=== PATIENT | female | born 1955 | race Caucasian/White ===

== ENCOUNTER → 2016-04-22 | Outpatient (CLI) | payer BC ==
--- NOTE | 2016-04-22 08:44 | MA ---
Screening Digital Mammogram With iCAD Analysis Clinical Indications: Routine screening. Technique: Standard cephalocaudal projections are obtained. Digital breast tomosynthesis was performe d in the MLO projection with reconstruction at 1.0 mm slice thickness and composite MLO views reconst ructed. This examination is processed by the iCAD computer aided detection system. Comparison: April 2015, October 2013, February 2012, January 2011, September 2009, September 2008, August 2007 . Breast density: Type B; Scattered fibroglandular densities. Findings: CAD was reviewed. No masses, suspicious calcifications or secondary signs of malignancy are seen. There has been no significant change in the appearance of either breast. Impression: Negative mammogram. BI-RADS 1. Recommendation: Routine mammographic screening in one year as long as physical examination is negativ [facility]. Negative mammography should not preclude additional workup of a clinically suspicious finding. The patient's information is entered into a reminder system with a target due date for her next mammo gram.
== END ==
LOC: FIMAGING 07:26
DX: Z12.31 Encounter for screening mammogram for malignant neoplasm of breast (principal)
CPT/HCPCS: G0202

== ENCOUNTER 2016-05-09 12:25 | Emergency (ER) | payer BC ==
--- NOTE | 2016-05-09 12:47 | EDPHY ---
H & P Smoking Status: Never smoked Time Seen by Provider: 05/09/16 12:39 HPI/ROS: Chief complaint. Vomiting, dizzy HPI. 60-year-old female riding in the car with her this morning about 2 -3 hours ago. She felt like she was going to pass out. notes that her arms became stiff and extended out and she was not responsive for about 60 seconds with her arms held out stiff. She came to. The says there was no shaking or seizure-type activity and then she has vomited multiple times since. She did have a similar episode about 1 year ago but did not pass out and did not have vomiting afterwards but did have near syncope. At this point she has no chest discomfort, shortness of breath, abdominal pain, headache, visual symptoms. She still somewhat nauseated. She has had multiple sclerosis for 21 years though has been stable. She has not been sick recently including fever cough upper respiratory symptoms ROS Constitutional. no fever/chills, no weakness Eyes. no problems with vision ENT. no sore throat, no nasal drainage Cardiovascular. no chest pain Respiratory. no shortness of breath, no cough Abdominal. no abdominal pain, no nausea/vomiting, no diarrhea . no problems urinating MS. no calf pain/swelling, no neck/back pain, no joint pain Skin. no rash Lymph. no swollen glands Neuro. Arms held out stiffness and then 60 second episode of unresponsiveness ( Andrew Ahuja) Past Medical/Surgical History: Multiple sclerosis, hypertension (Andrew Ahuja) Social History: , nonsmoker, no alcohol (Andrew Ahuja) Physical Exam: General Appearance: Alert pleasant well-developed female mild distress vital signs are stable Eyes: Pupils equal and round no pallor or injection. ENT, Mouth: Mucous membranes are moist. Respiratory: There are no retractions, lungs are clear to auscultation. Cardiovascular: Regular rate and rhythm. Gastrointestinal: Abdomen is soft and nontender, no masses, bowel sounds normal. Neurological: Awake and alert, sensory and motor exams grossly normal. Speech is normal. Cranial nerves are normal. There is no pronator drift. Finger-to- nose and [id number] are intact bilaterally Skin: Warm and dry, no rashes. Musculoskeletal: Neck is supple nontender. Extremities symmetrical, full range of motion. Psychiatric: Patient is oriented X 3, there is no agitation. (Andrew Ahuja) Constitutional: Initial Vital Signs Temperature (C) 36.3 C 05/09/16 12:29 Heart Rate 69 05/09/16 12:29 Respiratory Rate 16 05/09/16 12:29 Blood Pressure 168/73 H 05/09/16 12:29 O2 Sat (%) 100 05/09/16 12:29 O2 Delivery Mode Room Air O2 (L/minute) 2 Allergies/Adverse Reactions: No Known Allergies Allergy (Unverified 05/09/16 12:29) Home Medications: Medication Instructions Recorded Lisinopril 05/09/16 Medical Decision Making - Diagnostics EKG Interpretation: EKG interpreted by me shows normal sinus rhythm with normal interval and axis. QRS is normal there is no significant ST elevation or depression. There is some T-wave flattening in anterior leads V2 and V3. Rate is 58 (Andrew Ahuja) Procedures: IV normal saline, monitor (Andrew Ahuja) ED Course/Re-evaluation: I discussed the patient's case with Dr. Caruso who recommends MRI without and with contrast. If there is a new plaque her lesion consistent with MS the anti give her Solu-Medrol in the emergency department. If no new plaques then follow up in the next few days in their office. (Andrew Ahuja) Other Provider: I assumed care of this patient from Dr. Ahuja. She was undergoing MRI to assess for new demyelinating lesions. MRI reported to me. No enhancing lesions seen. Outside MRIs cannot be viewed in our system. I spoke with Dr. Caruso again, relaying these results. Solumedrol is not recommended at this time. She will follow up with her neurologist. She has not had any further episodes of abnormal movement or altered mental status. She and her are comfortable returning home. (Alina Mckeon) Care Turn Over: Dr. Benjamin at 3:00 p.m. (Andrew Ahuja) - Data Points Laboratory Results: Laboratory Results 05/09/16 13:15 05/09/16 13:15 Medications Given: Discontinued Medications Sodium Chloride (Ns) 1,000 mls @ 0 mls/hr IV ONCE ONE PRN Reason: Wide Open Stop: 05/09/16 13:04 Last Admin: 05/09/16 13:25 Dose: 1,000 mls Lorazepam (Ativan Injection) 1 mg IVP EDNOW ONE Stop: 05/09/16 14:16 Last Admin: 05/09/16 14:22 Dose: 1 mg Ondansetron HCl (Zofran) 4 mg IVP EDNOW ONE Stop: 05/09/16 13:05 Last Admin: 05/09/16 13:36 Dose: 4 mg Departure - Departure Disposition: Home, Routine, Self-Care Clinical Impression: Seizure Condition: Good Instructions: New-Onset Seizure in Adults (ED) Additional Instructions: Call Dr. Cory Early' office this afternoon or tomorrow to arrange follow- up. They will be expecting your call. There are no enhancing lesions on today's MRI. We don't know if today's episode was a seizure or not. I am giving you information about seizures. Referrals: Terrance Escobar DO [Primary Care Provider] - As per Instructions Cory Early MD [Medical Doctor] - As per Instructions
[2016-05-09] MEDS ORDERED: NS 1,000 ML IV ONE (13:03)
[2016-05-09] MEDS ORDERED: ONDANSETRON 4 MG/2 ML VIAL IVP ONE (13:04)
[2016-05-09 13:27] LABS: % IMMATURE GRANULYOCYTES 0.6 % (0.0-1.1); ABSOLUTE IMMATURE GRANULOCYTES 0.04 10^3/uL (0.00-0.10); ADD DIFF? NO; ADD MORPH? NO; ADD SCAN? NO; ATYPICAL LYMPHOCYTE FLAG 0 (0-99); FRAGMENT RBC FLAG 0 (0-99); HEMOGLOBIN 13.5 g/dL (12.6-16.3); LEFT SHIFT FLG 0 (0-99); LIPEMIA HEMOLYSIS FLAG 90 (0-99); MEAN CELL HEMOGLOBIN 31.5 pg (27.9-34.1); MEAN CELL HEMOGLOBIN CONCENTR. 33.8 g/dL (32.4-36.7); MEAN CELL VOLUME 93.5 fL (81.5-99.8); MEAN PLATELET VOLUME 10.5 fL (8.7-11.7); PLATELET CLUMPS FLAG 0 (0-99); PLATELET COUNT 188 10^3/uL (150-400); RED BLOOD CELL COUNT 4.28 10^6/uL (4.18-5.33)
--- NOTE | 2016-05-09 13:37 | CPEKG ---
Heart Rate: 58 RR Interval: 1034 P-R Interval: 152 QRSD Interval: 82 QT Interval: 432 QTC Interval: 425 P Upatoi: 72 QRS Upatoi: 62 T Wave Upatoi: 37 EKG Severity - BORDERLINE ECG - EKG Impression: SINUS RHYTHM EKG Impression: BORDERLINE T ABNORMALITIES, ANTERIOR LEADS Electronically Signed By: Andrew Ahuja 09-May-2016 14:30:34
[2016-05-09 13:46] LABS: ANION GAP 12 mEq/L (8-16); CALCIUM 9.9 mg/dL (8.5-10.4); CARBON DIOXIDE 23 mEq/l (22-31); CHLORIDE 109 mEq/L (97-110); CREATININE 0.7 mg/dL (0.6-1.0); GLOMERULAR FILTRATION RATE > 60; GLUCOSE 86 mg/dL (70-100); POTASSIUM 3.8 mEq/L (3.5-5.2); SODIUM 144 mEq/L (134-144)
[2016-05-09 13:58] LABS: TROPONIN I < 0.012 ng/mL (0-0.034)
[2016-05-09] MEDS ORDERED: LORazepam 2 MG/ML INJ IVP ONE (14:15)
[2016-05-09 16:51] VITALS: BP 118/79; PULSE 75; RESP 18; TEMP 97.9; O2SAT 97
== END 2016-05-09 16:51 | disposition home or self-care (01) ==
DX: R56.9 Unspecified convulsions (principal); I10 Essential (primary) hypertension
CPT/HCPCS: 96374; J2405

== ENCOUNTER → 2016-05-18 | Outpatient (CLI) | payer BC ==
--- NOTE | 2016-05-18 14:27 | CPEEG ---
ELECTROENCEPHALOGRAM. DATE OF STUDY: 05/18/2016 DATE OF INTERPRETATION: 05/18/2016. INTERPRETATION: This EEG contains a mild degree of focal slowing over the left temporal head region . These findings would be consistent with a mild focal disturbance of cerebral function in this reg ion. There was no potentially epileptogenic abnormalities present during the awake or sleep recordi ngs. REPORT: This EEG contains 10 hertz alpha to the posterior head regions. There was a mild degree of focal theta slowing present over the left temporal head region on an intermittent basis. There was no abnormal activation at rest, during photic stimulation, or hyperventilation. The patient became drowsy and fell into sustained sleep during the study. There was no abnormal activation during vicki wsiness, sleep, or during times of arousal. /[id number]/MODL
== END ==
LOC: FCPNEURO 09:22
PROVIDERS: ATTEND Physician Assistant Medical
DX: R94.02 Abnormal brain scan (principal); R56.9 Unspecified convulsions

== ENCOUNTER → 2017-04-24 | Outpatient (CLI) | payer BC | LOC: FIMAGING 08:19 | PROVIDERS: ATTEND Obstetrics & Gynecology Gynecology | DX: Z12.31 Encounter for screening mammogram for malignant neoplasm of breast (principal) ==

== ENCOUNTER → 2018-02-01 | Outpatient (CLI) | payer BC | LOC: FIMAGING 09:07 | PROVIDERS: ATTEND Family Medicine | DX: M81.0 Age-related osteoporosis without current pathological fracture (principal); Z78.0 Asymptomatic menopausal state ==

== ENCOUNTER → 2018-04-25 | Outpatient (CLI) | payer BC | LOC: FIMAGING 07:40 | PROVIDERS: ATTEND Obstetrics & Gynecology Gynecology | DX: Z12.31 Encounter for screening mammogram for malignant neoplasm of breast (principal) ==

== ENCOUNTER → 2018-05-01 | Outpatient (CLI) | payer BC | LOC: FIMAGING 08:35 | PROVIDERS: ATTEND Obstetrics & Gynecology Gynecology | DX: Q61.2 Polycystic kidney, adult type (principal) ==

== ENCOUNTER → 2018-06-08 | Outpatient (CLI) | payer BC | LOC: FIMAGING 07:22 | PROVIDERS: ATTEND Internal Medicine Nephrology | DX: Q61.3 Polycystic kidney, unspecified (principal) ==